=== PATIENT | female | born 1960 | race Caucasian/White ===

== ENCOUNTER 2020-04-25 11:55 | Outpatient (REF) | payer BC, SELFPAY ==
--- NOTE | 2020-04-25 | XR_ITS ---
EXAMINATION: XR HAND, LEFT CLINICAL INFORMATION: Second digit injury. COMPARISON: None TECHNIQUE: PA, lateral, and oblique views of the left hand. FINDINGS: There is no acute fracture or dislocation. The joint spaces are unremarkable. The carpal bones are normally aligned. The distal radius and ulna are intact. Mild soft tissue swelling is seen in the second digit. There is no radiopaque foreign body. XR/XR hand LT min 3V IMPRESSION: Mild soft tissue swelling in the second digit without acute underlying osseous abnormality or radiopaque foreign body.
== END 2020-04-25 11:56 | disposition home or self-care (01) ==
LOC: HO.HMGCX 11:55
PROVIDERS: PCP Internal Medicine; Visit Provider Internal Medicine
DX: M79.642 Pain in left hand (principal)
CPT/HCPCS: 73130

== ENCOUNTER 2020-10-13 08:33 | Outpatient (REF) | payer BC, SELFPAY ==
--- NOTE | ~2020-10-13 | MM_ITS ---
EXAMINATION: MM SCREENING DIGITAL BREAST TOMOSYNTHESIS, BILATERAL CLINICAL INFORMATION: Screening. Asymptomatic. The lifetime risk of breast cancer based on the Tyrer-Cuzick Model is 8%. COMPARISON: Mammography: 07/12/2019, 07/01/2018, 05/27/2017 TECHNIQUE: Digital breast tomosynthesis is performed in both the craniocaudal and mediolateral oblique views along with computer-aided detection (CAD). Synthesized 2D images are generated from the tomosynthesis. FINDINGS: The breasts are almost entirely fatty (ACR BI-RADS breast composition Category a). There are no significant masses, abnormal calcifications, or other abnormalities. Background stromal markings are stable. The axilla and skin contours are unremarkable. MM/MM tomosynthesis screening BI IMPRESSION: No mammographic evidence of malignancy. ASSESSMENT: BI-RADS 1: Negative RECOMMENDATION: Routine annual mammography screening. This patient's information was entered into a reminder system with a target due date for their next mammogram.
== END 2020-10-13 08:34 | disposition home or self-care (01) ==
LOC: HO.MAMMO 08:33
PROVIDERS: Visit Provider Internal Medicine
DX: Z12.31 Encounter for screening mammogram for malignant neoplasm of breast (principal)
CPT/HCPCS: 77063; 77067

== ENCOUNTER → 2020-12-20 08:49 | Outpatient (BNVA) | payer BC, SELFPAY | PROVIDERS: PCP Internal Medicine; Referring Provider Internal Medicine; Visit Provider Surgery ==

== ENCOUNTER 2021-01-19 07:04 | Day surgery (SDC) | payer BC, SELFPAY ==
[2021-01-12 12:23] VITALS: BMI 30.7
--- NOTE | 2021-01-18 08:50 | HO.ANESPROP2 ---
Documented by User: Mahsa Rose NP 01/18/21 08:51 HPI - Anesthesia Eval Consult details Narrative: 60yo F for Colonoscopy, Poss Polypectomy PMFSH Active Problems Active Problems: All Active Problems (Updated 01/12/21 @ 12:14 by Sangeeta Schultz, DAQUAN) Colon cancer screening (Acute) Past Medical History Medical History Asthma Colon cancer screening HTN (hypertension) Hypothyroid Surgical History Surgical History H/O colonoscopy Hx of tonsillectomy Hx of wisdom tooth extraction Social History Social History Patient Tobacco Use Status: Former Tobacco user Quit Date: age 21 Tobacco use type: Cigarette Years Smoked: 4 Use of substances other than those prescribed or required for medical reasons: No Are you DNR?: No Advance Directives Information Provided: No (as above noted) Meds Allergies Allergy/AdvReac Type Severity Reaction Status Date / Time bee pollen [BEE STINGS] Allergy Severe ANAPHYLAXIS Verified 01/19/21 07:40 Home Medications Medication Instructions Recorded Confirmed Last Taken Type albuterol sulfate 90 mcg/actuation 1 puff INHALATION Q4H 12/20/20 01/12/21 01/19/21 06:30 History aerosol inhaler budesonide-formoterol HFA 80 1 puff INHALATION BID 12/20/20 01/12/21 Unknown History mcg-4.5 mcg/actuation aerosol inhaler (Symbicort) estradiol 0.0375 mg/24 hr 1 patch TOPICAL 2XW 12/20/20 01/12/21 Unknown History semiweekly transdermal patch (Vivelle-Dot) hydrochlorothiazide 25 mg tablet 25 mg PO DAILY 12/20/20 01/12/21 Unknown History levothyroxine 125 mcg tablet 125 mcg PO DAILY 12/20/20 01/12/21 Unknown History (Synthroid) losartan 25 mg tablet 25 mg PO DAILY 12/20/20 01/12/21 Unknown History progesterone micronized 100 mg 100 mg PO BEDTIME 12/20/20 01/12/21 Unknown History capsule Exam Exam Date and Time: January 18, 2021 0850 Height,Weight and Vital Signs: Height 5 ft 4 in Weight 81.1 kg Assessment and Plan Assessment Anesthesia Assessment: Chart Reviewed Documented by User: Kami Roberts MD 01/19/21 08:04 PMF Past Medical History Medical History Asthma Colon cancer screening HTN (hypertension) Hypothyroid Family History Family history of problems with anesthesia: No Surgical History Surgical History H/O colonoscopy Hx of tonsillectomy Hx of wisdom tooth extraction History of Problems with Anesthesia: Yes Social History Social History Patient Tobacco Use Status: Former Tobacco user Quit Date: age 21 Tobacco use type: Cigarette Years Smoked: 4 Use of substances other than those prescribed or required for medical reasons: No Are you DNR?: No Advance Directives Information Provided: No (as above noted) Meds Allergies Allergy/AdvReac Type Severity Reaction Status Date / Time bee pollen [BEE STINGS] Allergy Severe ANAPHYLAXIS Verified 01/19/21 07:40 Home Medications Medication Instructions Recorded Confirmed Last Taken Type albuterol sulfate 90 mcg/actuation 1 puff INHALATION Q4H 12/20/20 01/12/21 01/19/21 06:30 History aerosol inhaler budesonide-formoterol HFA 80 1 puff INHALATION BID 12/20/20 01/12/21 Unknown History mcg-4.5 mcg/actuation aerosol inhaler (Symbicort) estradiol 0.0375 mg/24 hr 1 patch TOPICAL 2XW 12/20/20 01/12/21 Unknown History semiweekly transdermal patch (Vivelle-Dot) hydrochlorothiazide 25 mg tablet 25 mg PO DAILY 12/20/20 01/12/21 Unknown History levothyroxine 125 mcg tablet 125 mcg PO DAILY 12/20/20 01/12/21 Unknown History (Synthroid) losartan 25 mg tablet 25 mg PO DAILY 12/20/20 01/12/21 Unknown History progesterone micronized 100 mg 100 mg PO BEDTIME 12/20/20 01/12/21 Unknown History capsule Exam Airway Mallampati Class: II TM Dist: >3cm Neck ROM: Full Assessment and Plan Assessment Anesthesia Assessment: Anesthesia Plan Discussed Final Anesthetic Review Family History of Problems with Anesthesia: No History of Problems with Anesthesia: Yes NPO: Yes ASA Class: II Final Preanesthetic Review: No Changes in Pt Med Stat, Meds/Allgs Chart Reviewed, Consent Obtained/Reviewed and Anes Risks/Benef Reviewed Patient Risk: Low Procedure Risk: Low Assessment/Block/Sedation in SS: Assess/Block/Sedation-SS Anesthetic Plan Anesthetic Plan: MAC: Disposition: Standard PACU
[2021-01-19 07:36] VITALS: BP 159/81; PULSE 71; RESP 18; TEMP 36.7; O2SAT 96
[2021-01-19] MEDS: Lactated Ringers 1,000 ML 100 ML IVCONT (07:50)
--- NOTE | 2021-01-19 08:38 | MHC.SHP ---
Pre-Procedural Eval Section A Date of Service: 01/19/21 Section B Chief Complaint: Screening Allergies: Allergies Allergy/AdvReac Type Severity Reaction Status Date / Time bee pollen [BEE STINGS] Allergy Severe ANAPHYLAXIS Verified 01/19/21 07:40 Plan I have reviewed the history and physical and performed a pertinent physical examination on my patient. No changes have occurred unless specified.
--- NOTE | 2021-01-19 09:18 | W.PM.OPN ---
Operative Note Operative Note Date of Service: 01/19/21 Narrative: Preop diagnosis: Colon cancer screening Postop diagnosis: Normal colonoscopy findings, except for small internal and external hemorrhoids Procedure: Colonoscopy Surgeon: Teofilo Downs MD The patient is a 60 year old female who is here for screening colonoscopy. She understood the technique of colonoscopy. She was aware of the risks, benefits, and alternatives. She was brought to the operating room and placed in left lateral decubitus position under monitored anesthesia care. A surgical time-out was done. A full digital rectal exam was done. There was no palpable lesions in the anus no induration. She did have some hemorrhoidal tissue that was prominent although not bulky. I inserted the Olympus colonoscope through the anal orifice gently and advanced this with insufflation all the way to the cecum. The cecum was intubated by the cecum was identified by visualization of the ileocecal valve as well as the appendiceal orifice. The cecal mucosa was unremarkable. Photographic documentation was done. scope was gradually withdrawn with careful examination of the entire colonic mucosa being done with scope withdrawal. The patient had adequate bowel prep so it was unlikely that any lesion may have been missed. The rectum was reached. There were no lesions seen. The anal canal was unremarkable except for some prominent hemorrhoidal tissue internal and external. The scope was then withdrawn completely with desufflation The patient tolerated procedure well. There were no complications noted. There was no blood loss She falls at average risk for colon cancer so her next colonoscopy may be in the next 10 years.
--- NOTE | 2021-01-19 09:20 | PM.OP ---
Brief Operative Note Date of Service: 01/19/21 Pre-op diagnosis: Colon cancer screen Post-op diagnosis: same (Normal findings) Procedure: Colonoscopy Surgeon: Teofilo Downs MD Anesthesia: MAC Was an Stitchdowns Toe Former used for this Procedure?: No Estimated blood loss (mL): 0 Pathology: none sent Condition: stable Disposition: PACU
[2021-01-19 09:22] VITALS: BP 119/68; PULSE 64; RESP 16; TEMP 36.3; O2SAT 97
[2021-01-19 09:35] VITALS: BP 136/70; PULSE 64; RESP 18; O2SAT 98
== END 2021-01-19 10:16 | disposition home or self-care (01) ==
PROVIDERS: PCP Internal Medicine; Visit Provider Surgery
PROC: 0DJD8ZZ Inspection of Lower Intestinal Tract, Via Natural or Artificial Opening Endoscopic (ICD-10-PCS; CPT 45378; principal; 2021-01-19 08:30)
DX: Z12.11 Encounter for screening for malignant neoplasm of colon (principal); K64.8 Other hemorrhoids; K64.4 Residual hemorrhoidal skin tags
CPT/HCPCS: 45378

== ENCOUNTER 2021-10-24 07:29 | Outpatient (REF) | payer BC, SELFPAY ==
--- NOTE | ~2021-10-24 | MM_ITS ---
EXAMINATION: MM SCREENING DIGITAL BREAST TOMOSYNTHESIS, BILATERAL CLINICAL INFORMATION: Screening. Asymptomatic. The lifetime risk of breast cancer based on the Tyrer-Cuzick Model is 8%. COMPARISON: Mammography: 10/13/2020, 07/12/2019, 07/01/2018 TECHNIQUE: Digital breast tomosynthesis is performed in both the craniocaudal and mediolateral oblique views along with computer-aided detection (CAD). Synthesized 2D images are generated from the tomosynthesis. FINDINGS: The breasts are almost entirely fatty (ACR BI-RADS breast composition Category a). Background stromal markings are normal. There are no significant masses, abnormal calcifications, or other abnormalities. The axilla and skin contours are unremarkable. MM/MM tomosynthesis screening BI IMPRESSION: No mammographic evidence of malignancy. ASSESSMENT: BI-RADS 1: Negative RECOMMENDATION: Routine annual mammography screening. This patient's information was entered into a reminder system with a target due date for their next mammogram.
== END 2021-10-24 07:30 | disposition home or self-care (01) ==
LOC: HO.MAMMO 07:29
PROVIDERS: Visit Provider Internal Medicine
DX: Z12.31 Encounter for screening mammogram for malignant neoplasm of breast (principal)
CPT/HCPCS: 77063; 77067

== ENCOUNTER 2022-12-10 07:53 | Outpatient (REF) | payer OTHER, SELFPAY | END 2022-12-10 07:54 | disposition home or self-care (01) | LOC: HO.MAMMO 07:53 | PROVIDERS: Absent Provider Obstetrics & Gynecology Gynecology; Visit Provider Internal Medicine | DX: Z12.31 Encounter for screening mammogram for malignant neoplasm of breast (principal) | CPT/HCPCS: 77063; 77067 ==

== ENCOUNTER → 2022-12-10 08:15 | Outpatient (BNV) | payer OTHER, SELFPAY | PROVIDERS: Absent Provider Obstetrics & Gynecology Gynecology; Visit Provider Radiology Diagnostic Radiology | DX: Z12.31 Encounter for screening mammogram for malignant neoplasm of breast (principal) | CPT/HCPCS: 77063; 77067 ==

== ENCOUNTER 2024-01-02 07:54 | Outpatient (REF) | payer OTHER, SELFPAY ==
--- NOTE | ~2024-01-02 | MM_ITS ---
EXAMINATION: MM SCREENING DIGITAL BREAST TOMOSYNTHESIS, BILATERAL CLINICAL INFORMATION: Screening. Asymptomatic. COMPARISON: Mammography: Comparison is made with available priors TECHNIQUE: Digital breast mammography with tomosynthesis is performed in both the craniocaudal and mediolateral oblique views along with computer-aided detection (CAD). FINDINGS: There are scattered areas of fibroglandular density (ACR BI-RADS breast composition Category b). There are no significant masses, abnormal calcifications, or other abnormalities. MM/MM tomosynthesis screening BI IMPRESSION: No mammographic evidence of malignancy. ASSESSMENT: BI-RADS BI-RADS 1 - Negative RECOMMENDATION: Routine annual mammography screening. 1 year F/U This examination should not preclude the clinical evaluation of a suspicious palpable abnormality. This patient's information was entered into a reminder system with a target due date for their next mammogram. Electronically signed by: Felicita Lovett DO 01/18/2024 03:00 PM LIZZ
== END 2024-01-02 07:55 | disposition home or self-care (01) ==
LOC: HO.MAMMO 07:54
PROVIDERS: PCP Internal Medicine; Visit Provider Internal Medicine
DX: Z12.31 Encounter for screening mammogram for malignant neoplasm of breast (principal)
CPT/HCPCS: 77063; 77067

== ENCOUNTER → 2024-01-02 08:15 | Outpatient (BNV) | payer OTHER, SELFPAY | PROVIDERS: PCP Internal Medicine; Visit Provider Internal Medicine | DX: Z12.31 Encounter for screening mammogram for malignant neoplasm of breast (principal) | CPT/HCPCS: 77063; 77067 ==

== ENCOUNTER 2025-03-17 08:19 | Outpatient (REF) | payer BC, SELFPAY ==
--- OUTSIDE RECORDS SUMMARY | 2023-12-15 03:00 | XMS_ITS ---
Author Organization [facility] Address [address] [place] [address] Care Team Providers Care Divorce Attorney Name Role Phone BELA SADLER M.D. Primary Care Provider Evangelina Castellano Unavailable [phone] REASON FOR VISIT Annual NETWORK LIAISON Physical Encounters Encounter Location Date Provider Diagnosis [facility] [address] [place] [address] 12/15/2023 Evangelina Jarvis Plan Of Treatment Next Appt Details Provider Name:Evangelina melendez, 04/11/2025 09:20:00 AM, [address], [address], [place], [address], Progress Notes * CHELSEY HEREDIAEDOB: (64 yo F)Acc No.[id number]:12/15/2023 PROGRESS NOTES Patient: Lenny FERNANDES YANG NUNEZ Appointment Provider: Wale Jarvis M.D. :1960 A ge:63 Y S ex:Female Date:12/15/2023 Address:[address] [place] [address] Pcp:BELA SADLER M.D. Subjective: * Chief Complaints: * 1 . Annual NETWORK LIAISON Physical. * Medical History: M enopausal and female climacteric states, Candidiasis of vulva and vagina, Other asthma, Essential (primary) hypertension, Hypothyroidism, unspecified, Other malignant neoplasm of skin of other and unspecified parts of face, Hormone replacement therapy (postmenopausal), Atrophy of vulva, Functional urinary incontinence. 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 S exual activity c urrently sexually active. L ast Pap Smear: NIL, NEG HPV, 06/11/19 NIL, NEG HPV, 06/2016 , neg, NEG HRHPV. M ammogram: Breast Tissue is Almost Entirely Fatty, 10/13/20 Breast Tissue is Almost Entirely Fatty, 07/12/19 Breast Tissue is Almost Entirely Fatty, 07/01/18 Breast Tissue is Almost Entirely Fatty, 05/27/17 Breast Tissue is Almost Entirely Fatty, 11/01/15, Breast Tissue is Almost Entirely Fatty. L MP and menses m enopause. M enopause: B young at age: 4 0 C olonoscopy y es 2009. G YN HISTORY MISC. Alanna Score on Mammogram = 12%. * OB History: T otal pregnancies 3 . T otal living children 2 . N VD 2 . M iscarriage(s) 1 . Objective: * Vitals: Assessment: Plan: * Treatment: * Images: Billing Information: * Visit Code: * Procedure Codes: * Electronic signature of Natalia Jarvis MD on 03/17/2025 at 08:51 AM EST Sign off status: Pending * Appointment Provider: Wale Jarvis M.D. Date: 0 12/15/2023 Generated for Dwayne morales/Mitch/Mataitting on: 05/17/2024 08:51 AM EST
--- NOTE | ~2025-03-17 | MM_ITS ---
EXAMINATION: MM SCREENING DIGITAL BREAST TOMOSYNTHESIS, BILATERAL CLINICAL INFORMATION: Screening. Asymptomatic. COMPARISON: Comparison made to multiple prior, most recent January 02, 2024, and most remote May 27, 2017. TECHNIQUE: Digital breast tomosynthesis is performed in mediolateral oblique and craniocaudal views along with computer-aided detection (CAD). Synthesized 2D images are generated from the tomosynthesis. FINDINGS: BREAST COMPOSITION: There are scattered areas of fibroglandular density. BILATERAL BREASTS: No significant masses, suspicious calcifications or other abnormalities are seen in either breast. MM/MM tomosynthesis screening BI IMPRESSION: BILATERAL BREASTS: Negative, no mammographic evidence of malignancy. Normal interval follow-up is recommended in 12 months. ASSESSMENT: BI-RADS: Category 1: Negative RECOMMENDATION: Routine annual mammography screening. FOLLOW-UP: 1 year F/U This examination should not preclude the clinical evaluation of a suspicious palpable abnormality. This patient's information was entered into a reminder system with a target due date for their next mammogram. Electronically signed by: Nicole Hicks MD 03/20/2025 05:47 PM [facility]
--- OUTSIDE RECORDS SUMMARY | 2025-03-17 08:51 | XMS_ITS | Patient Health Record ---
Author Organization [facility] Address [address] [place] [address] Care Team Providers Care Section Chief Name Role Phone BELA SADLER M.D. Primary Care Provider Unavail Evangelina Patricia Unavailable [phone] Allergies No Known Allergies Results Component Value Reference Range Notes Urinalysis Reviewed date:04/08/2024 10:45:28 AM Interpretation: Performing Lab: Notes/Report: PH 6.0 PROTEIN NEG GLUCOSE NEG BLOOD NEG Reason For Referral No Information Medications Medication SIG (Take, Route, Frequency, Duration) Notes Start Date End Date Status hydroCHLOROthiazide 25 MG TAKE 1 TABLET BY MOUTH EVERY DAY Oral; Duration: 60 Active Albuterol 90 MCG 2 Inhalation every 6 hours; Duration: -3 [facility] 11/19/2013 Active Estradiol 0.0375 MG/24HR APPLY 1 PATCH T OPICALLY TO THE SKIN 2 TIMES A WEEK; Duration: 84 Active Vivelle-Dot 0.0375 MG/24HR 1 patch to sk in Transdermal TWICE WEEKLY; Duration: 90 days 11/21/2022 Active Prometrium 100 MG 1 capsule at bedtime Orally Once a day; Duration: 90 days 04/08/2024 Active Synthroid 125 MCG 1 tablet in the morn ing on an empty stomach Orally Once a day [facility] 10/14/2012 Active Estradiol 0.0375 MG/24HR 1 patch to skin Transdermal Two times a Week; Duration: 90 days 04/08/2024 Active Losartan Potassium 25 MG 1 tablet Orally Once a day Active Symbicort 80-4.5 MCG/ACT inhale 1 puff b y mouth twice a day Inhalation; Duration: 60 Active Progesterone 100 MG TAKE 1 CAPSULE BY [facility] EVERY DAY AT BEDTIME; Duration: 90 Active Social History Tobacco Use: Social History Observation Description Date Details (start date - stop date) Never Smoker NA - NA Tobacco Use/Smoking Question Answer Notes Are you a nonsmoker Alcohol Screen (Audit-C) Question Answer Notes Did you have a drink contain ing alcohol in the past year? Yes How often did you have a dri nk containing alcohol in the past year? Monthly or less (1 point) How many drinks did you have on a typical day when you were drinking in the past year? 1 or 2 drinks (0 point) Points 1 Interpretation Negative Sexual History Question Answer Notes Had sex in the past 12 months (vaginal, oral, or anal)? Yes with Men only Prevention strategies discussed: Other Section Notes: MARITAL STATUS: CHILDREN: 2 Children LIVES WITH: spouse OCCUPATION: employed full-time NUTRITION: average diet EXERCISE: regular walking SEXUAL ACTIVITY: monogamous relationship. CONTRACEPTION: menopause .CE: Smoking: Never a smoker .CE: ALCOHOL: occasional alcohol TEXT MESSAGING WHILE DRIVING: no SUNSCREEN: yes ILLICIT DRUGS: no SEATBEALT: yes Problems Problem Type SNOMED Code ICD Code Onset Dates Problem Status W/U Status Risk Notes Problem Malignant neoplasm of skin of face (109793788) Other malignant neoplasm of skin of other and unspecified parts of face (173.3) Active confirmed Problem Functional urinary incontinence (205558698) Functional urinary incontinence (R39.81) Active confirmed Problem Candidal vulvovaginitis (41399711) Candidiasis of vulva and vagina (112.1) Active confirmed Diag Problem Hypothyroidism (34517132) Unspecified hypothyroidism (244.9) Active confirmed Major Problem Benign essential hypertension (7454269) Essential hypertension, benign (401.1) Active confirmed Major Problem Asthma (disorder) (248143586) Asthma, unspecified, unspecified status (493.90) Active confirmed Major Problem Menopausal symptom (33283748) Symptomatic menopausal or female climacteric states (627.2) Active confirmed Diag Problem Gynecological examination normal (751490683454296) Routine gynecological examination (V72.31) Active confirmed Major Problem Screening for malignant neoplasm of colon (586814404) Special screening for malignant neoplasms, colon (V76.51) Active confirmed Major Vital Signs Temperature 98.4 degrees Fahrenheit 04/08/2024 Blood pressure diastolic 84 mm Hg 04/08/2024 Height 62.75 in 04/08/2024 Blood pressure systolic 138 mm Hg 04/08/2024 Weight 178 lbs 04/08/2024 BMI 31.78 kg/m2 04/08/2024 Encounters Encounter Location Date Provider Diagnosis [facility] [address] [place] [address] 04/08/2024 Evangelina Jarvis Encounter for gynecological examination (general) (routine) without abnormal findings Z01.419 ; Encounter for screening mammogram for malignant neoplasm of breast Z12.31 ; Hormone replacement therapy Z79.890 and Encounter for screening for osteoporosis Z13.820 Assessments Encounter Date Diagnosis (ICD Code) Assessment Notes Treatment Notes Treatment Clinical Notes Section Notes 04/08/2024 Encounter for gynecological examination (general) (routine) without abnormal findings (ICD-10 - Z01.419) NO PAP TEST, DUE IN 2025. 04/08/2024 Encounter for screening mammogram for malignant neoplasm of breast (ICD-10 - Z12.31) REGULAR MAMMOGRAMS AND SBE'S WERE RECOMMENDED. 04/08/2024 Hormone replacement therapy (ICD-10 - Z79.890) DISCUSSED BENEFITS AND RISKS OF CONTINUED HRT. SHE HAS NO CONTRAINDICATIONS AND ACCEPTS RISKS. SHE WANTS TO CONTINUE. RX'S AND INSTRUCTIONS WERE GIVEN. SHE WILL TRY TO DECREASE DOSE GRADUALLY. 04/08/2024 Encounter for screening for osteoporosis (ICD-10 - Z13.820) BONE DENSITY WAS ORDERED. SHE WILL BE 64 YEARS OLD NEXT YEAR. Plan Of Treatment Pending Test Test Name Order Date MAMMOGRAM, SCREENING 08/07/2021 MAMMOGRAM, SCREENING 11/21/2022 MAMMOGRAM, SCREENING 04/08/2024 MAMMOGRAM, SCREENING 03/16/2015 THIN PREP,HPV,MICHELET IF HPV+ (>29YR)(SCRN) 06/26/2016 BONE DENSITY 04/08/2024 [facility]o Screening 03/16/2015 MM Digital Mammo Screening 04/08/2024 MM Digital Mammo Screening 08/07/2021 MM Digital Mammo Screening 11/21/2022 Next Appt Details Provider Name:Evangelina Garcia evondavid, 04/11/2025 09:20:00 AM, [address], [place], [address], Insurance Providers Payer Name Payer Address Payer Phone Subscriber Number Group Number Insured Name Patient Relationship to Insured Coverage Start Date Coverage End Date [address] ADELITA SANCHEZ [id number] YANG HEREDIA Self - patient is the insured Medical (General) History Medical History History ICD Code Menopausal and female climacteric states N95.1 Candidiasis of vulva and vagina B37.3 Other asthma J45.998 Essential (primary) hypertension I10 Hypothyroidism, unspecified E03.9 Other malignant neoplasm of skin of othe r and unspecified parts of face 173.3 Hormone replacement therapy (postmenopau akash) Z79.890 Atrophy of vulva N90.5 Functional urinary incontinence R39.81 Surgical History Surgery Date(Month/Year) Tonsillectomy [place] [facility]eth Colonoscopy Basel Cell Removed Hospitalization History Reason Date(Month/Year) 2 Vaginal Deliveries See Surgical Hx
--- OUTSIDE RECORDS SUMMARY | 2025-03-17 08:52 | XMS_ITS | Clinical Summary ---
Author Organization [facility] Address [address] [place] [address] Care Team Providers Care Auto Body Service Mechanic Name Role Phone Unavailable Primary Care Provider Unavailabl e Social History Tobacco Use Types Packs/Day Years Used Date Smoking Tobacco: Never Assessed Sex and Gender Information Value Date Recorded Sex Assigned at Not on file Gender Identity Not on file Sexual Orientation Not on file Plan of Treatment Not on file
--- OUTSIDE RECORDS SUMMARY | 2025-03-17 08:52 | XMS_ITS | Patient Health Record ---
Author Organization [facility] Address [address] [place] [address] Care Team Providers Care Spring Former Name Role Phone Sacha Carroll MD Primary Care Provider UnavailGume Doherty Unavailable [phone] Allergies Allergen (clinical drug ingredient) Drug/Non Drug Allergy documented on EMR Reaction Allergy Type Onset Date Status Bee Sting Unknown Allergy Active Reason For Referral No Information Medications Medication SIG (Take, Route, Frequency, Duration) Notes Start Date End Date Status Synthroid 125 MCG TAKE 1 TABLET BY MOUTH EVERY DAY Oral; Duration: 60 Active Symbicort 80-4.5 MCG/ACT INHALE 1 PUFF T WICE DAILY Inhalation; Duration: 60 Active Progesterone 100 MG TAKE 1 CAPSULE BY MOUTH EVERY DAY AT BEDTIME Oral; Duration: 90 Active Albuterol Sulfate HFA 108 (9 0 Base) MCG/ACT INHALE 1 PUFF BY MOUTH AND INTO THE LUNGS EVERY 4 HOURS. Inhalation; Duration: 28 Active Losartan Potassium 25 MG TAKE 1 TABLET B Y MOUTH EVERY DAY Oral; Duration: 90 Active hydroCHLOROthiazide 25 MG TAKE 1 TABLET BY MOUTH EVERY DAY Oral; Duration: 60 Active Vivelle-Dot 0.0375 MG/24HR APPLY 1 PATCH TO SKIN TWICE WEEKLY Transdermal; Duration: 84 Active Immunizations Vaccine Route Administration Date Status Comme nts COVID-19 Pfizer BioNTech Vaccine Unknown 12/27/2020 Administered 1st 05/2020 2nd 06/2020 Social History Tobacco Use: Social History Observation Description Date Details (start date - stop date) Never Smoker NA - NA Tobacco Use/Smoking Question Answer Notes Are you a: nonsmoker Alcohol Screen Question Answer Notes Did you have a drink containing alcohol in the p ast year? Yes Points 0 Interpretation Negative Tobacco use other than smoking: Question Answer Notes Are you an other tobacco user? 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
== END 2025-03-17 08:20 | disposition home or self-care (01) ==
LOC: HO.MAMMO 08:19
DX: Z12.31 Encounter for screening mammogram for malignant neoplasm of breast (principal)
CPT/HCPCS: 77063; 77067

== ENCOUNTER → 2025-03-17 08:30 | Outpatient (BNV) | payer BC, SELFPAY | PROVIDERS: Visit Provider Radiology Body Imaging | DX: Z12.31 Encounter for screening mammogram for malignant neoplasm of breast (principal) | CPT/HCPCS: 77063; 77067 ==